=== PATIENT | male | born 1995 | race American Indian/Alaskan Native ===

== ENCOUNTER 2018-12-13 16:37 | Inpatient (IN) | payer MEDICAID ==
--- NOTE | 2018-12-13 17:32 | C.PDOC ---
History Of Present Illness 23 y/o male brought to the ER by BLS complaining of depression.Patient states that he has auditory hallucinations.Patient denies having suicidal ideation and homicidal ideation. <Cheri Cazares - Last Filed: 12/13/18 18:55> History Per: Patient History/Exam Limitations: no limitations Onset/Duration Of Symptoms: Days Current Symptoms Are (Timing): Still Present Severity: Moderate <Cheri Cazares - Last Filed: 12/13/18 18:55> <Cortez Elise - Last Filed: 12/13/18 19:38> Time Seen by Provider: 12/13/18 16:40 Chief Complaint (Nursing): Psychiatric Evaluation Past Medical History Reviewed: Historical Data, Nursing Documentation, Vital Signs - Medical History PMH: Depression, Schizophrenia (schizoaffective) Surgical History: No Surg Hx Family History: States: No Known Family Hx - Social History Hx Alcohol Use: Yes ("clean for 30 days") Hx Substance Use: Yes <Cheri Cazares - Last Filed: 12/13/18 18:55> Review Of Systems Except As Marked, All Systems Reviewed And Found Negative. Constitutional: Negative for: Fever, Chills Psych: Positive for: Depression <Cheri Cazares - Last Filed: 12/13/18 18:55> Physical Exam - Physical Exam Appears: No Acute Distress Skin: Normal Color, Warm, Dry Head: Atraumatic, Normacephalic Eye(s): bilateral: Normal Inspection Nose: Normal Oral Mucosa: Moist Neck: Supple Chest: Symmetrical Cardiovascular: Rhythm Regular Respiratory: Normal Breath Sounds, No Rales, No Rhonchi, No Wheezing Gastrointestinal/Abdominal: Normal Exam, Soft, No Tenderness, No Guarding, No Rebound Neurological/Psych: Oriented x3, Normal Speech <Cheri Cazares Last Filed: 12/13/18 18:55> ED Course And Treatment - Laboratory Results Result Diagrams: 12/13/18 17:52 12/13/18 17:52 <Cheri Cazares - Last Filed: 12/13/18 18:55> - Laboratory Results Result Diagrams: 12/13/18 17:52 12/13/18 17:52 Lab Results: Total Bilirubin 0.4 mg/dL (0.2-1.3) 12/13/18 17:52 AST 32 U/L (17-59) 12/13/18 17:52 ALT 55 U/L (21-72) 12/13/18 17:52 Alkaline Phosphatase 77 U/L (38-126) 12/13/18 17:52 Total Protein 7.3 g/dL (6.3-8.3) 12/13/18 17:52 Albumin 4.9 g/dL (3.5-5.0) 12/13/18 17:52 Globulin 2.4 gm/dL (2.2-3.9) 12/13/18 17:52 Albumin/Globulin Ratio 2.1 (1.0-2.1) 12/13/18 17:52 Urine Color Yellow (YELLOW) 12/13/18 17:52 Urine Clarity Clear (Clear) 12/13/18 17:52 Urine pH 6.0 (5.0-8.0) 12/13/18 17:52 Ur Specific [place] 1.023 (1.003-1.030) 12/13/18 17:52 Urine Protein Negative mg/dL (NEGATIVE) 12/13/18 17:52 Urine Glucose (UA) Normal mg/dL (Normal) 12/13/18 17:52 Urine Ketones Negative mg/dL (NEGATIVE) 12/13/18 17:52 Urine Blood Negative (NEGATIVE) 12/13/18 17:52 Urine Nitrate Negative (NEGATIVE) 12/13/18 17:52 Urine Bilirubin Negative (NEGATIVE) 12/13/18 17:52 Urine Urobilinogen 2.0 mg/dL (0.2-1.0) 12/13/18 17:52 Ur Leukocyte Esterase Neg Mary/uL (Negative) 12/13/18 17:52 Urine WBC (Auto) < 1 /hpf (0-5) 12/13/18 17:52 Urine RBC (Auto) 3 /hpf (0-3) 12/13/18 17:52 Ur Squamous Epith Cells < 1 /hpf (0-5) 12/13/18 17:52 Urine Bacteria Rare (<OCC) 12/13/18 17:52 <Cortez Elise - Last Filed: 12/13/18 19:38> Medical Decision Making Medical Decision Making: Plan: --Labs --UA Updates: Patient is being evaluated by CRISIS. <Cheri Cazares - Last Filed: 12/13/18 18:55> Disposition - Disposition Disposition Time: 18:55 <Cheri Cazares - Last Filed: 12/13/18 18:55> Discussed With : Alexx Harley Comment: accepted the pt on his service and took over the care at 7:37 PM Doctor Will See Patient In The: Hospital Counseled Patient/Family Regarding: Studies Performed, Diagnosis - POA Present On Arrival: None <Cortez Elise - Last Filed: 12/13/18 19:38> - Disposition Disposition: HOSPITALIZED Condition: FAIR Forms: NeighborMD (Croatian) - Clinical Impression Clinical Impression: Depressed, Schizoaffective disorder, depressive type - PA / COMPLIANCE TESTING ANALYST / Resident Statement MD/DO has reviewed & agrees with the documentation as recorded. - Scribe Statement The provider has reviewed the documentation as recorded by the Prashantibdeandra Lucas Provider Attestation All medical record entries made by the Scribe were at my direction and personally dictated by me. I have reviewed the chart and agree that the record accurately reflects my personal performance of the history, physical exam, medical decision making, and the department course for this patient. I have also personally directed, reviewed, and agree with the discharge instructions and disposition. <Cheri Cazares - Last Filed: 12/13/18 18:55> Physician Patient Turnover Patient Signed Over To: Cortez Elise Handoff Comments: Pending crisis eval and disposition <Cheri Czaares - Last Filed: 12/13/18 18:55> Decision To Admit <Cheri Cazares - Last Filed: 12/13/18 18:55> - Pt Status Changed To: Hospital Disposition Of: Inpatient - Admit Certification Admit to Inpatient:: After my assessment, the patient will require hospitalization for at least two midnights. This is because of the severity of symptoms shown, intensity of services needed, and/or the medical risk in this patient being treated as an outpatient. - InPatient: Physician Admission Certification: I certify that this patient requires 2 or more midnights of care for the following reason:: After my assessment, the patient will require hospitalization for at least two midnights. This is because of the severity of symptoms shown, intensity of services needed, and/or the medical risk in this patient being treated as an outpatient. - . Bed Request Type: Psychiatry Admitting Physician: Alexx Harley <Cortez Elise - Last Filed: 12/13/18 19:38> - . Patient Diagnosis: Depressed, Schizoaffective disorder, depressive type
[2018-12-13 18:00] LABS: EOS # 0.1 K/uL (0.0-0.7); LYMPH # 3.3 K/uL (1.0-4.3); MONO # 0.5 K/uL (0.0-0.8); NEUT # 2.8 K/uL (1.8-7.0); NEUT % 41.2 % (50.0-75.0)
[2018-12-13 18:15] LABS: ALB/GLOB RATIO 2.1 (1.0-2.1); ALBUMIN 4.9 g/dL (3.5-5.0); ALT/SGPT 55 U/L (21-72); AST/SGOT 32 U/L (17-59); BLOOD UREA NITROGEN 12 mg/dL (9-20); CALCIUM 9.2 mg/dl (8.6-10.4); GFR NON-AFRICAN AMERICAN > 60
[2018-12-13 18:30] LABS: BARBITURATES, UR NEGATIVE (NEGATIVE); BENZODIAZEPINES, UR NEGATIVE (NEGATIVE); OPIATES, UR NEGATIVE (NEGATIVE); PHENCYCLIDINE, UR NEGATIVE (NEGATIVE)
[2018-12-13 18:34] LABS: SQUAMOUS EPITHIAL < 1 /hpf (0-5); URINE BACTERIA RARE (<OCC); URINE BILIRUBIN NEGATIVE (NEGATIVE); URINE BLOOD NEGATIVE (NEGATIVE); URINE CLARITY Clear (Clear); URINE COLOR Yellow (YELLOW); URINE GLUCOSE (UA) NORMAL (Normal); URINE LEUKOCYTE ESTERASE NEG Leu/uL (Negative); URINE PROTEIN NEGATIVE (NEGATIVE)
[2018-12-13 18:40] LABS: BASO # 0.1 K/uL (0.0-0.2); BASO % 1.1 % (0.0-2.0); HEMOGLOBIN 13.6 g/dL (12.0-18.0); LYMPH % 48.8 % (20.0-40.0); MEAN CELL VOLUME 83.8 fL (80.0-94.0); MEAN CORPUSCULAR HGB CONC 32.2 g/dL (33.0-37.0); MEAN PLATELET VOLUME 8.5 fL (7.2-11.7); MONO % 7.9 % (0.0-10.0); NRBC % 0.2 % (0.0-2.0); RBC 5.03 Mil/uL (4.40-5.90); RED CELL DISTRIBUTION WIDTH 13.3 % (11.5-14.5); WHITE BLOOD COUNT 6.8 K/uL (4.8-10.8)
[2018-12-13 19:40] VITALS: O2SAT 98
--- NOTE | 2018-12-13 22:49 | PCM.BM ---
<Tristan Martin - Last Filed: 12/13/18 22:47> Treatment Plan Problems - Problems identified on initial assessmt Schizophrenia Date Initiated: 12/13/18 Time Initiated: 22:47 Assessment reference: NA Status: Active Suicidal ideation Date Initiated: 12/13/18 Time Initiated: 22:47 Assessment reference: NA Status: Active Homicidal ideation Date Initiated: 12/13/18 Time Initiated: 22:47 Assessment reference: NA Status: Active Treatment assets and liabiliti Patient Assests: self-reliant, ADL independent, negotiates basic needs Patient Liabilities: live alone ([employer] [facility]), financial problems (unemployed), poor support system (Poor family relationship), substance abuse (Crack cocaine and marijuana), medical problems - Milieu Protocol Maintain good personal hygiene: daily Encourage regular showers, daily Remind patient to perform daily oral care, every shift Assist patient to perform ADL's Conduct patient checks and document Observation sheet: Q15 minutes (For safety) Maintain personal safety: every shift Educate patient to report safety concerns to staff, every shift Monitor environment for contraband/sharps Medication safety: Monitor for expected outcome, potential side effects: every shift, Assess barriers to learning: every shift, Assess readiness for medication education: every shift <Juanita Norton - Last Filed: 12/15/18 10:37> - Diagnosis (1) Schizoaffective disorder, depressive type Status: Acute Interventions: 12/15/18 10:37 * Assess 7x/week regarding severity of withdrawal * Educate regarding risks, benefits, side effects and alternatives of medications * Use Motivational Interviewing for abstinence * Use CBT for relapse prevention * Medication management for withdrawal symptoms * Encourage medication assisted treatment * <Lianna Norris - Last Filed: 12/15/18 12:31> Family Contact Family involvement: Famliy/SO not involved - Goals for Treatment Patient goals for treatment: [place] Discharge/Continuing Care - Education Needs Education Needs: Patient Medication, Patient Coping Skills, Patient Placement options, Patient Community resources - Discharge Discharge Criteria: Tolerates medication w/o severe side effects, Reduction of target symptoms Discharge to:: [facility] - Treatment Team Participation Discussed with Family/SO: No Was Patient/Family/SO present at Treatment Team Meeting: Yes
--- NOTE | 2018-12-14 09:54 | PCM.PSYCH ---
Initial Psychiatric Evaluation - Initial Psychiatric Evaluation Type of Admission: Voluntary Legal Status: Capacity Chief Complaint (in patient's own words): I was hearing voices.' History of Present Illness and Precipitating Events: Patient is a 23 years old -Indonesian male, single unemployed came to the [facility] ED for auditory and visual hallucinations and paranoia. Reports history of multiple inpatient psychiatric hospitalizations. He was recently discharged from [facility] unit and he went to the [facility] emergency department [facility]. Patient reports that he is noncompliant with his psych medications as he stopped going to the outpatient clinic located in [facility]. Patient reports that since few days he is becoming increasingly paranoid. He reports that he is seeing people who look like individuals form his past that have wronged him in some way. He also reports that these individuals tell him to kill himself and that no one likes him and that he does not belong anywhere. He reports that because of the voices he is becoming increasingly paranoid and delusional. He also reports that due to these voices he quit his job in 2016 because the voices told him that he does not belong there and that someone is going to shoot him if he stays. He reports history of suicidal ideations with few incomplete attempts. He tried to hang himself when he was 13. He also reports of drinking vodka daily. Last drink was more than 10 days ago. He reports depressed mood, at times feelings of hopelessness and helplessness, poor sleep and poor appetite. He reports at times irritability and agitation but denies any manic symptoms. He denies any suicidal ideation or any homicidal ideation. Past medical history None reported Current Medications: Active Medications Generic Name Dose Route Start Last Admin Trade Name Freq PRN Reason Stop Dose Admin Benztropine Mesylate 1 mg 12/13/18 21:18 Cogentin PO Q6H PRN EPS symptoms Haloperidol 5 mg 12/13/18 21:13 Haldol PO Q6 PRN Agitation Hydroxyzine HCl 50 mg 12/13/18 23:04 Atarax PO Q6H PRN Anxiety Ibuprofen 600 mg 12/13/18 23:04 Motrin Tab PO Q6H PRN Pain, moderate (4-7) Influenza Virus Vaccine 60 mcg 12/15/18 10:00 Flucelvax Quad [id number] Syr IM 12/15/18 10:01 .ONCE ONE Pneumococcal Polyvalent Vaccine 0.5 ml 12/15/18 10:00 Pneumovax 23 Vaccine IM 12/15/18 10:01 .ONCE ONE Trazodone HCl 100 mg 12/13/18 23:04 Desyrel PO HS PRN Insomnia Past Psychiatric History - Past Psychiatric History Previous Treatment History: Inpatient Pertinent Medical Hx (Current Medical&Sleep Prob, Allergies): Allergies Allergy/AdvReac Type Severity Reaction Status Date / Time No Known Allergies Allergy Verified 12/13/18 17:16 Escitalopram [Lexapro] 10 mg PO DAILY 12/13/18 Paliperidone [Paliperidone ER] 6 mg PO BID 12/13/18 Trazodone HCl 100 mg PO HS 12/13/18 Review of Systems - Review of Systems All systems: reviewed and no additional remarkable complaints except - Psychiatric Psychiatric: Anxiety, Auditory Hallucinations, Irritability, Suicidal Ideation Mental Status Examination - Personal Presentation Personal Presentation: Looks stated age - Affect Affect: Constricted - Motor Activity Motor Activity: Calm - Reliability in Providing Information Reliability in Providing Information: Poor, due to altered mood - Speech Speech: Organized - Mood Mood: Anxious - Formal Thought Process Formal Thought Process: Hallucinations, Delusions, Paranoia, Loosening of associations - Hallucinations/Delusions Hallucinations: Auditory Delusions: Persecution - Obsessions/Compulsions Obsessions: No Compulsions: No - Cognitive Functions Orientation: Person, Place, Situation, Time Sensorium: Alert Attention/Concentration: Attentive Abstract Thinking: [place] Estimate of Intelligence: Below average Judgement: Imparied, as evidence by: Poor judgement, Imparied, as evidence by: Lack of insight into illness - Risk Risk: Diminished functioning - Limitations Limitations: Living alone DSM 5 DX - DSM 5 DSM 5 Diagnosis: Schizoaffective disorder depressive type Alcohol use disorder severe - Recommended/Plan of Treatment Treatment Recommendations and Plan of Treatment: Schizoaffective disorder depressive type Alcohol use disorder severe CBT Psychoeducation Supportive therapy and group therapy Risperdal for hallucinations Trazodone for insomnia Hydroxyzine for anxiety Lexapro for depression - Smoking Cessation Smoking Cessation Initiated: No
[2018-12-15 06:46] VITALS: RESP 20; TEMP 97.5
[2018-12-15] MEDS ORDERED: Influenza Vaccine 60 mcg/0.5 mL SYR (4YR UP) IM ONE (10:00)
[2018-12-15] MEDS ORDERED: Pneumococcal 23-Valent Vaccine IM ONE (10:00)
--- NOTE | 2018-12-15 10:37 | PCM.PYCHPN ---
Psychiatric Progress Note - Psychiatric Progress Note Patient seen today, length of contact: 15 min Patient Chief Complaint: I was hearing voices.' Problems Identified/Issues Discussed: Patient was seen and evaluated, chart reviewed and discussed the staff. Patient reports of hearing voices and reports of paranoia. As per staff patient remained irritable and agitated and was found pacing back and forth in the hallways. He is taking medications but denies any psychotic Symptoms are improving gradually needs to stay longer for further stabilization. Supportive therapy was given. Medication Change: Yes Medical Record Reviewed: Yes Mental Status Examination - Cognitive Function Orientation: Person, Place, Situation, Time Memory: Intact Attention: WNL Concentration: Poor Association: Loose Fund of Knowledge: Poor - Mood Mood: Anxious - Affect Affect: Constricted - Speech Speech: Soft - Formal Thought Process Formal Thought Process: Hallucinations, Delusions, Paranoia, Loosening of associations - Suicidal Ideation Suicidal Ideation: No - Homicidal Ideation Homicidal Ideation: No Goal/Treatment Plan - Goal/Treatment Plan Need for Continued Stay: Remain at risks for inpatient hospitalization, Severe depression anxiety Progress Toward Problem(s) and Goals/Treatment Plan: Schizoaffective disorder depressive type Alcohol use disorder severe CBT Psychoeducation Supportive therapy and group therapy Risperdal for hallucinations Trazodone for insomnia Hydroxyzine for anxiety Lexapro for depression
--- NOTE | 2018-12-17 10:06 | PCM.PYCHPN ---
Psychiatric Progress Note - Psychiatric Progress Note Patient seen today, length of contact: 15 min Patient Chief Complaint: I m feeling better.' Problems Identified/Issues Discussed: Patient was seen and evaluated, chart reviewed and discussed the staff. Pt reports improvement in his mood and reports improvement in the paranoia. Patient reports some improvement in the irritability and agitation. He is taking medications but denies any psychotic Symptoms are improving gradually needs to stay longer for further stabilization. Supportive therapy was given. Medication Change: Yes Medical Record Reviewed: Yes Mental Status Examination - Cognitive Function Orientation: Person, Place, Situation, Time Memory: Intact Attention: WNL Concentration: WNL Association: WNL Fund of Knowledge: WNL - Mood Mood: Anxious - Affect Affect: Constricted - Speech Speech: Soft - Formal Thought Process Formal Thought Process: Paranoia - Suicidal Ideation Suicidal Ideation: No - Homicidal Ideation Homicidal Ideation: No Goal/Treatment Plan - Goal/Treatment Plan Need for Continued Stay: Remain at risks for inpatient hospitalization, Severe depression anxiety Progress Toward Problem(s) and Goals/Treatment Plan: Schizoaffective disorder depressive type Alcohol use disorder severe CBT Psychoeducation Supportive therapy and group therapy Risperdal for hallucinations Trazodone for insomnia Hydroxyzine for anxiety Lexapro for depression - Smoking Cessation Smoking Cessation Initiated: No
--- NOTE | 2018-12-18 22:57 | PCM.PYCHPN ---
Psychiatric Progress Note - Psychiatric Progress Note Patient seen today, length of contact: 15 min Patient Chief Complaint: I am feeling little better but my sleep is not good. Problems Identified/Issues Discussed: Patient seen, chart reviewed, case discussed with the staff. Issues related to illness and treatment were discussed with the patient and staff. Reported compliant with treatment with no adverse effects. Tolerating treatment very well. Reported feeling little better as his sleep is not good . Will increase the dose of trazodone to 150 mg. Patient understood and agreed. Mood reported as okay. Affect appropriate. Calm and cooperative Awake, alert and oriented x3. Aftercare discussed with the patient. Denied any delusions, auditory or visual hallucinations, suicidal ideations or homicidal ideations at the time of evaluation. Medical Problems: None reported Diagnostic Results: Reviewed DSM 5 Symptoms Update: Some improvement with treatment. Medication Change: No Medical Record Reviewed: Yes Mental Status Examination - Cognitive Function Orientation: Person, Place, Situation, Time Memory: Intact Attention: WNL Concentration: WNL Association: [facility] Fund of Knowledge: [facility] Decription of patient's judgement and insights: Fair - Mood Mood: Depressed (Much less than before) - Affect Affect: Depressed - Speech Speech: Soft - Formal Thought Process Formal Thought Process: No Impairment Psychotic Thoughts and Behaviors: None - Suicidal Ideation Suicidal Ideation: No - Homicidal Ideation Homicidal Ideation: No Goal/Treatment Plan - Goal/Treatment Plan Need for Continued Stay: Remain at risks for inpatient hospitalization, Discharge may exacerbated symptoms, Severe functional impairment Progress Toward Problem(s) and Goals/Treatment Plan: Some improvement with treatment. Patient education. Supportive therapy. Will increase the dose of trazodone to 150 mg at bedtime. Continue respiratory treatment as before. Estimated Date of D/C: 12/22/18 - Smoking Cessation Smoking Cessation Initiated: No
[2018-12-19 16:03] VITALS: BP 127/81; PULSE 71
--- NOTE | 2018-12-20 12:11 | PCM.PYCHDC ---
Mental Status Examination - Mental Status Examination Orientation: Person, Place, Situation, Time Memory: Intact Mood: Neutral Affect: Constricted Speech: Soft Attention: WNL Concentration: WNL Association: WNL Fund of Knowledge: WNL Formal Thought Process: No Impairment Description of patient's judgement and insight: good, fair Psychotic Thoughts and Behaviors: denies any AVH Suicidal Ideation: No Current Homicidal Ideation?: No Discharge Summary - Discharge Note Reason for Hospitalization: Patient is a 23 years old -Mosoth[place] male, single unemployed came to the [facility] ED for auditory and visual hallucinations and paranoia. Reports history of multiple inpatient psychiatric hospitalizations. He was recently discharged from [facility] and he went to the [facility]. Patient reports that he is noncompliant with his psych medications as he stopped going to the outpatient clinic located in [facility]. Patient reports that since few days he is becoming increasingly paranoid. He reports that he is seeing people who look like individuals form his past that have wronged him in some way. He also reports that these individuals tell him to kill himself and that no one likes him and that he does not belong anywhere. He reports that because of the voices he is becoming increasingly paranoid and delusional. He also reports that due to these voices he quit his job in 2016 because the voices told him that he does not belong there and that someone is going to shoot him if he stays. He reports history of suicidal ideations with few incomplete attempts. He tried to hang himself when he was 13. He also reports of drinking vodka daily. Last drink was more than 10 days ago. He reports depressed mood, at times feelings of hopelessness and helplessness, poor sleep and poor appetite. He reports at times irritability and agitation but denies any manic symptoms. He denies any suicidal ideation or any homicidal ideation. Consultations:: List each consultation separately and include: 1. Reason for request. 2. Findings. 3. Follow-up Summary of Hospital Course include:: 1. Description of specific treatment plan utilized for patients during their course of treatmen. 2. Summarize the time-course for resolution of acute symptoms and/or regressed behaviors. 3. Describe issues identified and worked on during hospitalization. 4. Describe medication utilized. 5. Describe medical problems identified and treated. 6. Reassessment of suicide risk Summary of Hospital Course: During the course of his stay, patient (pt) started progressively improving and no longer remained irritable, depressed, paranoid and suicidal. His mood and paranoia were improved and he started attending groups and meetings and started socializing. Patient denied any feelings of hopelessness, helplessness, and worthlessness, denied any problem with the sleep or appetite, denied suicidal ideation or homicidal ideation. Pt denied any auditory or visual hallucinations. He denied any withdrawal symptoms. Pt was treated with medications along with supportive therapy, milieu therapy and group therapy. Some changes were made in his current medications and patient was discharged on following medications. He tolerated these medications very well and denied any side effects. - Diagnosis (1) Schizoaffective disorder, depressive type Status: Acute - Final Diagnosis (DSM 5) Condition upon Discharge: FAIR DSM 5: Schizoaffective disorder depressive type Alcohol use disorder severe Disposition: HOME/ ROUTINE Follow-up Treatment Plan: Followup: Pt signed 48 hour notice, which expires today. Pt is to move to [place] and will follow-up with after care in that state. Education: Pt was educated and counseled about the risks and benefits of taking and not taking medications. Pt was educated and counseled about the risks of drinking and abusing drugs. Pt was educated and counseled to go to the ER or call 911 if pt develop suicidal ideation or homicidal ideation, worsening of symptoms or severe side effects of the meds. Prescriptions/Medication Reconciliation: Escitalopram [Lexapro] 20 mg PO DAILY #30 tab Gabapentin [Neurontin] 100 mg PO BID #60 cap risperiDONE [RisperDAL Tab] 2 mg PO BID #60 tab traZODone [Desyrel] 100 mg PO HS PRN #30 tab PRN Reason: Insomnia - Smoking Cessation Smoking Cessation Medication prescribed: No - Antipsychotic Medications Pt discharged on 2 or more routine antipsychotic medications: No
== END 2018-12-20 13:48 | disposition home or self-care (01) | DRG 430 ==
LOC: C.ER 16:37 → C.5E 19:36
PROVIDERS: ADMIT Psychiatry & Neurology Psychiatry; ATTEND Psychiatry & Neurology Psychiatry
PROC: GZHZZZZ Group Psychotherapy (ICD-10-PCS; principal; 2018-12-13)
PROC: GZ56ZZZ Individual Psychotherapy, Supportive (ICD-10-PCS; 2018-12-13)
DX: F25.1 Schizoaffective disorder, depressive type (principal); F41.9 Anxiety disorder, unspecified; G47.00 Insomnia, unspecified; Z91.19 Patient's noncompliance with other medical treatment and regimen; F10.10 Alcohol abuse, uncomplicated